=== PATIENT | male | born 1950 | race Caucasian/White ===

== ENCOUNTER 2017-04-19 05:18 | Day surgery (SDC) | payer OTHER ==
[~2017-04-19] VITALS: Ht 177.8 cm; Wt 102.1 kg
--- NOTE | ~2017-04-19 | O ---
[facility] [place] [address] OPERATIVE REPORT Name: JAYNE CHURCHILL Room #: DEP [facility] M.R.#: [id number] Admission: 04/19/17 Attend Phys: Ruba العلي, Discharge: 04/19/17 Date of : 46 Report #: [id number] THIS REPORT FOR: //name// CC: Pablo العلي DATE OF SERVICE: 04/19/2017 PREOPERATIVE DIAGNOSIS: Right thumb osteomyelitis. POSTOPERATIVE DIAGNOSIS: Right thumb osteomyelitis. PROCEDURE PERFORMED: Right thumb proximal phalanx debridement. SURGEON: Ruba العلي MD ANESTHESIA: General mask anesthesia. ESTIMATED BLOOD LOSS: 3 mL TOURNIQUET TIME: 19 minutes. SPECIMENS: Sent to pathology, microbiology and swab was sent to microbiology. COMPLICATIONS: None. CONDITION: Stable. DISPOSITION: To recovery room. INDICATIONS: The patient is a 66-year-old male with the above mentioned diagnosis. He elects for operative treatment. The risks, benefits, alternatives and complications were discussed that included, but were not limited to infection, damage to blood vessels and nerves, incomplete relief of his symptoms, possible needing more surgery and stiffness. An informed consent was obtained. The correct extremity was identified and labeled by myself after verbal confirmation of the patient as well as visual confirmation and signed informed consent was obtained. DESCRIPTION OF PROCEDURE: The patient was brought back to the operating room and placed on the operating table in supine position. He did not receive preoperative antibiotics and 1 g of vancomycin was given in the operating room after the cultures were obtained and tourniquet was deflated. A discussion was held with his infectious disease doctor, Dr. Mauricio Thomson who recommended a PICC line and IV antibiotic of vancomycin initially and he will manage the antibiotics. [address] [address] OPERATIVE REPORT Name: JAYNE CHURCHILL JUDY Room #: DEP [facility]..#: [id number] Admission: 04/19/17 Attend Phys: Ruba العلي, Discharge: 04/19/17 Date of : 46 Report #: [id number] The right upper extremity was sterilely prepped and draped in the usual fashion. A final timeout was taken to verify the correct patient, operative procedure and operative site, all concurred. Tourniquet was placed over careful padding. The arm was elevated, but was not exsanguinated and the tourniquet inflated. Next, an ulnar-sided incision was made at the P1 level distally. Dissection was carried down through the subcutaneous tissue with tenotomy scissors. Cloudy fluid was obtained. No gross purulence was found. The fascia site was easily identified. The bone actually had good quality. Fluoroscopy was brought in to confirm the identity of the fracture site. Next, a small incision was made radially at the insertion site of the K-wire. Dissection was carried down through the subcutaneous tissue with tenotomy scissors. A small micro-curette was inserted into the bone what was felt to be an original insertion site of the K-wire to debride this. Cultures were taken. Next, the wound and bone were irrigated with a liter of antibiotic saline using 14-gauge angiocatheter. This was thoroughly irrigated. The deep Afsaneh drain was placed. The skin was closed with 4-0 nylon suture. Subcutaneous tissue was infiltrated with approximately 3 mL of 0.25% Marcaine. He was placed in a bulky compressive dressing and a thumb spica splint. He tolerated the procedure well. All fingers were pink with brisk capillary refill at the conclusion of the case. After deflation of the tourniquet, all sponge and needle counts were correct. The patient was transferred to the postoperative recovery room in stable condition. <ELECTRONICALLY SIGNED> By: Ruba العلي MD 05/03/17 1111 1730 1816 Ruba العلي MD /nt
--- NOTE | ~2017-04-19 | S ---
[facility] [place] [address] SURGICAL PATH RPT PROCEDURE Name: ROLAND CHURCHILL Room #: DEP [facility] M.R.#: [id number] Admission: 04/19/17 Date of : 46 Discharge: 04/19/17 Report #: [id number] Path Case #: [id number] PATHOLOGY REPORT COLLECTION DATE: 04/19/2017 RECEIVED DATE: 04/20/2017 SUBMITTING PHYS: Dr. Ruba العلي OTHER PHYS: Dr. Pablo Bhakta SPECIMEN(S) RECEIVED: A.Right thumb-distal phalanx bone * * * * * * * * * * * * FINAL DIAGNOSIS: Bone "right thumb distal phalanx bone": - Fragmentation of bony trabeculae with fibrosis consistent with fracture. (SHA:mml; 04/23/2017) PATHOLOGIST: Jack Nicholson M.D. REPORT ELECTRONICALLY SIGNED BY: Jack Nicholson M.D. DATE/TIME: 04/23/2017 14:23 * * * * * * * * * * * * GROSS PATHOLOGY: Received in formalin labeled "Roland Churchill, bone distal phalanx" and consists of a 0.3 x 0.2 x 0.2 cm osseous brown tissue fragment that is totally submitted as A1 following formalin fixation and decalcification. (JEFF; 04/20/2017) CLINICAL HISTORY: Right thumb proximal phalanx fracture INITIAL CPT CODE(S): A; 03327, 03806 Professional services performed by [facility] at [facility] [address] [place] [address] Technical services performed by [facility] at [address] [place] [address], [facility] [address] [address]. [facility] [address] [place] [address] SURGICAL PATH RPT PROCEDURE Name: ROLAND CHURCHILL AXTELL Room #: DEP [facility] Jose#: [id number] Admission: 04/19/17 Date of : 46 Discharge: 04/19/17 Report #: [id number] Path Case #: [id number] [facility] [address] [place] [id number] PHONE: [phone] DIRECTOR: James Hess M.D. * * * END OF REPORT * * *
--- NOTE | ~2017-04-19 | EKG ---
[address] [address] ELECTROCARDIOGRAM REPORT Name: JAYNE CHURCHILL Room #: [facility].#: [id number] Admission: 04/19/17 Attend Phys: Ruba العلي, Discharge: 04/19/17 Date of : 46 Report #: [id number] THIS REPORT FOR: //name// [facility] Test Date: 2017-04-19 Test Time: 13:48:05 Pat Name: JAYNE CHURCHILL Department: Room: 150 4 Gender: M Advertisement Distributor: Jonnie DODSON : 1950 Requested By: Ruba العلي Order Number: [id number] MD: Quirino Issa Measurements Intervals [place] Rate: 67 P: 33 WA: 166 QRS: -47 QRSD: 108 T: -1 QT: 412 QTc: 435 Interpretive Statements Sinus rhythm Left anterior fascicular block Abnormal R-wave progression, late transition Probable left ventricular hypertrophy Compared to ECG 02/14/2016 06:53:51 T-wave abnormality no longer present Electronically Signed On 04-19-2017 21:19:17 SNUFF GRINDER by Quirino Issa [email or web address] <ELECTRONICALLY SIGNED> By: Quirino Issa MD 04/19/17 2119 1348 Quirino Issa MD /EPI
[~2017-04-19 05:18] MED LIST: ASPIRIN325 PO; ATENOLOL; ATENOLOL 100MG100 MG PO; ATENOLOL 25MG T25 MG PO; COREG6.25 MG PO; CRESTOR10 MG PO; DOXYCYCLINE HY100 M3 PO; FOLIC ACID1 MG PO; LISINOPRIL; LISINOPRIL20 MG PO; METHOTREXATE 22.5 MG PO; NITROGLYCERIN0.4 MG SUBLING; NORVASC5 MG PO; PLAVIX 75 MG TA75 M1 PO; PLAVIX PO; VITAMIN D1000 UNI1 PO; ZANTAC 150MG T150 MG PO; ZETIA10 MG PO
[2017-04-19 13:54] LABS: ABSOLUTE NEUTROPHILS 6.1 thou/uL (1.4-8.2); BASOPHILS 0.9 % (0.0-2.0); EOSINOPHILS 2.1 % (0.0-3.0); HEMATOCRIT 45.1 % (42.0-52.0); HEMOGLOBIN 15.1 gm/dL (14.0-18.0); LYMPHOCYTES 20.9 % (24.0-44.0); MCH 28.1 pg (26.0-34.0); MCHC 33.5 g/dL (28.0-37.0); MCV 83.7 fL (80.0-100.0); MONOCYTES 7.1 % (1.0-8.0); PLATELET COUNT 203 thou/uL (150-400); RBC 5.38 mil/uL (4.50-6.00); RDW 14.7 % (10.5-14.5); WBC 8.9 thou/uL (4.0-11.0)
[2017-04-19 14:01] LABS: CREATININE 0.8 mg/dL (0.7-1.3); POTASSIUM 3.7 mmol/L (3.5-5.1)
[2017-04-19 14:07] LABS: ALBUMIN 3.8 g/dL (3.4-5.0); TOTAL BILIRUBIN 0.6 mg/dL (<0.1-1.0); TOTAL PROTEIN 7.2 g/dL (6.4-8.2)
[2017-04-20] MEDS ORDERED: ASPIRIN325 PO (14:58)
== END 2017-04-19 19:20 | disposition home or self-care (01) ==
LOC: OR 05:18 → TBA 05:18 → OR 09:48 → EDSTATUS 11:21 → OR 11:23
PROVIDERS: Orthopaedic Surgery Hand Surgery
DX: M86.641 Other chronic osteomyelitis, right hand (principal); S62.511A Displaced fracture of proximal phalanx of right thumb, initial encounter for closed fracture; X58.XXXA Exposure to other specified factors, initial encounter; Y93.9 Activity, unspecified; Y92.89 Other specified places as the place of occurrence of the external cause; Y99.9 Unspecified external cause status; M86.671 Other chronic osteomyelitis, right ankle and foot; Z87.891 Personal history of nicotine dependence; I10 Essential (primary) hypertension; E78.5 Hyperlipidemia, unspecified; Z95.1 Presence of aortocoronary bypass graft; K21.9 Gastro-esophageal reflux disease without esophagitis; M06.871 Other specified rheumatoid arthritis, right ankle and foot
CPT/HCPCS: 27000; 50010; 50101; 50386; 57006; 57091; 62110; 62900; 70005

== ENCOUNTER → 2017-04-20 | Outpatient (CLI) | payer OTHER ==
[2017-04-20 14:49] VITALS: BP 146/84
== END ==
LOC: OPONC 10:17
DX: M86.8X4 Other osteomyelitis, hand (principal)
CPT/HCPCS: 95000

== ENCOUNTER → 2017-04-21 | Outpatient (CLI) | payer OTHER | LOC: OPONC 01:41 | DX: M86.8X4 Other osteomyelitis, hand (principal) | CPT/HCPCS: 95000 ==

== ENCOUNTER → 2017-04-22 | Outpatient (CLI) | payer OTHER | LOC: OPONC 04:25 | DX: M86.8X4 Other osteomyelitis, hand (principal) | CPT/HCPCS: 95000 ==

== ENCOUNTER → 2017-04-23 | Outpatient (CLI) | payer OTHER ==
[2017-04-23 10:30] VITALS: BP 163/102
== END ==
LOC: OPONC 01:41
DX: M86.8X4 Other osteomyelitis, hand (principal); Z88.0 Allergy status to penicillin
CPT/HCPCS: 27001; 95000

== ENCOUNTER → 2017-04-24 | Outpatient (CLI) | payer OTHER ==
[2017-04-24 10:55] VITALS: BP 168/102
== END ==
LOC: OPONC 06:24
DX: M86.8X4 Other osteomyelitis, hand (principal)
CPT/HCPCS: 95000

== ENCOUNTER → 2017-04-25 | Outpatient (CLI) | payer OTHER ==
[2017-04-25 10:00] LABS: HEMATOCRIT 42.4 % (42.0-52.0); HEMOGLOBIN 14.1 gm/dL (14.0-18.0); MCH 28.3 pg (26.0-34.0); MCHC 33.3 g/dL (28.0-37.0); MCV 84.9 fL (80.0-100.0); RDW 14.5 % (10.5-14.5); WBC 7.2 thou/uL (4.0-11.0)
[2017-04-25 10:10] VITALS: BP 147/83
[2017-04-25 10:25] LABS: ALBUMIN 3.3 g/dL (3.4-5.0); CALCIUM 8.9 mg/dL (8.5-10.1); CREATININE 0.9 mg/dL (0.7-1.3); POTASSIUM 3.6 mmol/L (3.5-5.1); TOTAL BILIRUBIN 0.5 mg/dL (<0.1-1.0); TOTAL PROTEIN 6.7 g/dL (6.4-8.2)
== END ==
LOC: OPONC 00:18
PROVIDERS: Specialist
DX: M86.8X4 Other osteomyelitis, hand (principal)
CPT/HCPCS: 95000

== ENCOUNTER → 2017-04-26 | Outpatient (CLI) | payer OTHER ==
[2017-04-26 09:21] VITALS: BP 158/87
== END ==
LOC: OPONC 00:18
DX: M86.8X4 Other osteomyelitis, hand (principal)
CPT/HCPCS: 95000

== ENCOUNTER → 2017-04-27 | Outpatient (CLI) | payer OTHER ==
[2017-04-27 09:08] VITALS: BP 169/91
== END ==
LOC: OPONC 00:18
DX: M86.8X4 Other osteomyelitis, hand (principal)
CPT/HCPCS: 95000

== ENCOUNTER → 2017-04-28 | Outpatient (CLI) | payer OTHER | LOC: OPONC 00:18 | DX: M86.8X4 Other osteomyelitis, hand (principal) | CPT/HCPCS: 95000 ==

== ENCOUNTER → 2017-04-29 | Outpatient (CLI) | payer OTHER | LOC: OPONC 00:18 | DX: M86.8X4 Other osteomyelitis, hand (principal) | CPT/HCPCS: 95000 ==

== ENCOUNTER → 2017-04-30 | Outpatient (CLI) | payer OTHER | LOC: OPONC 00:18 | DX: M86.8X4 Other osteomyelitis, hand (principal) | CPT/HCPCS: 95000 ==

== ENCOUNTER → 2017-05-01 | Outpatient (CLI) | payer OTHER ==
[2017-05-01 09:25] VITALS: BP 145/89
[2017-05-01 09:33] LABS: HEMATOCRIT 41.9 % (42.0-52.0); HEMOGLOBIN 14.2 gm/dL (14.0-18.0); MCH 28.4 pg (26.0-34.0); MCHC 33.9 g/dL (28.0-37.0); MCV 83.9 fL (80.0-100.0); RBC 4.99 mil/uL (4.50-6.00); RDW 14.2 % (10.5-14.5); WBC 7.5 thou/uL (4.0-11.0)
[2017-05-01 09:46] LABS: ALBUMIN 3.3 g/dL (3.4-5.0); CALCIUM 8.4 mg/dL (8.5-10.1); CREATININE 0.9 mg/dL (0.7-1.3); POTASSIUM 3.6 mmol/L (3.5-5.1); TOTAL BILIRUBIN 0.4 mg/dL (<0.1-1.0); TOTAL PROTEIN 6.7 g/dL (6.4-8.2)
== END ==
LOC: OPONC 00:18
PROVIDERS: Specialist
DX: M86.8X4 Other osteomyelitis, hand (principal)
CPT/HCPCS: 95000

== ENCOUNTER → 2017-05-02 | Outpatient (CLI) | payer OTHER ==
[2017-05-02 11:40] VITALS: BP 167/83
== END ==
LOC: OPONC 00:52
DX: M86.8X4 Other osteomyelitis, hand (principal)
CPT/HCPCS: 95000; 95001

== ENCOUNTER → 2017-05-03 | Outpatient (CLI) | payer OTHER ==
[2017-05-03 14:55] VITALS: BP 140/80
== END ==
LOC: OPONC 06:53
DX: M86.8X4 Other osteomyelitis, hand (principal)
CPT/HCPCS: 95000

== ENCOUNTER 2020-04-10 00:09 | Emergency (ER) | payer OTHER ==
[~2020-04-10] VITALS: Ht 177.8 cm; Wt 106.6 kg
[2020-04-10] MEDS ORDERED: LOW DOSE ASPIRI81 M1 PO (00:15)
[2020-04-10] MEDS ORDERED: NORVASC5 MG PO (00:16)
[2020-04-10] MEDS ORDERED: FAMOTIDINE20 MG PO (00:17)
[2020-04-10] MEDS ORDERED: FUROSEMIDE 20 M20 M1 PO (00:17)
[2020-04-10] MEDS ORDERED: FOLIC ACID0.4 MG PO (00:17)
[2020-04-10] MEDS ORDERED: ATENOLOL 50MG T50 MG PO (00:17)
[2020-04-10] MEDS ORDERED: K-DUR10 MEQ PO (00:18)
[2020-04-10] MEDS ORDERED: EFFIENT10 MG PO (00:18)
[2020-04-10] MEDS ORDERED: ROSUVASTATIN CA20 MG PO (00:18)
[2020-04-10] MEDS ORDERED: TREXALL10 MG PO (00:19)
[2020-04-10] MEDS ORDERED: ATENOLOL 50MG T50 M1 PO (00:20)
[2020-04-10 00:38] LABS: ABSOLUTE NEUTROPHILS 5.1 thou/uL (1.4-8.2); BASOPHILS 0.7 % (0.0-2.0); EOSINOPHILS 3.6 % (0.0-3.0); HEMATOCRIT 42.2 % (42.0-52.0); HEMOGLOBIN 13.9 gm/dL (14.0-18.0); MCH 28.3 pg (26.0-34.0); MCHC 32.9 g/dL (28.0-37.0); MONOCYTES 9.3 % (1.0-8.0); PLATELET COUNT 217 thou/uL (150-400); POLYS 65.4 % (36.0-66.0); RBC 4.91 mil/uL (4.50-6.00); RDW 16.1 % (10.5-14.5); WBC 7.8 thou/uL (4.0-11.0)
[2020-04-10 00:44] LABS: CALCIUM 9.1 mg/dL (8.5-10.1); CREATININE 0.9 mg/dL (0.7-1.3); POTASSIUM 3.4 mmol/L (3.5-5.1)
[2020-04-10 00:53] LABS: TROPONIN-I 0.21 ng/mL (<0.06)
[2020-04-10 05:03] VITALS: BP 165/91
--- NOTE | 2020-04-10 10:45 | EKG ---
[facility] [place] [address] ELECTROCARDIOGRAM REPORT Name: JAYNE CHURCHILL [id number] Admission: 04/10/20 Attend Phys: Discharge: 04/10/20 Date of : 46 Report #: [id number] THIS REPORT FOR: cc: Pablo Bhakta MD, Richard C. MD Lundgren, Craig H. MD [facility] ~ THIS REPORT FOR: //name// [facility] ED Test Date: 2020-04-10 Test Time: 00:15:54 Pat Name: JAYNE CHURCHILL Department: Room: Gender: Diesel Mechanic Apprentice: : 1950 Requested By: Willy Xiong Order Number: [id number] MD: Joshua Mims Measurements Intervals [place] Rate: 87 P: 49 ID: [id number] QRS: -79 QRSD: 126 T: 12 QT: 403 QTc: 485 Interpretive Statements Sinus rhythm Ventricular premature complex Nonspecific IVCD with LAD Anteroseptal infarct, age indeterminate Baseline wander in lead(s) V1 Compared to ECG 04/19/2017 13:48:05 Ventricular premature complex(es) now present Electronically Signed On 04-10-2020 10:45:13 PRENATAL GENETIC COUNSELOR by Joshua Mims [email or web address] <ELECTRONICALLY SIGNED> By: Joshua Mims MD, [facility] 04/10/20 1045 0015 0015 Joshua Mims MD, [facility] /EPI
== END 2020-04-10 05:06 | disposition home or self-care (01) ==
LOC: ER 00:09
PROVIDERS: Emergency Medicine
DX: I49.3 Ventricular premature depolarization (principal); R00.2 Palpitations; R11.0 Nausea; R68.83 Chills (without fever); Z95.5 Presence of coronary angioplasty implant and graft; I10 Essential (primary) hypertension; I48.91 Unspecified atrial fibrillation; M06.9 Rheumatoid arthritis, unspecified; K21.9 Gastro-esophageal reflux disease without esophagitis; E78.5 Hyperlipidemia, unspecified; E66.9 Obesity, unspecified; Z79.899 Other long term (current) drug therapy; Z98.890 Other specified postprocedural states; Z79.82 Long term (current) use of aspirin; Z88.0 Allergy status to penicillin; Z88.1 Allergy status to other antibiotic agents; Z87.891 Personal history of nicotine dependence; Z68.33 Body mass index [BMI] 33.0-33.9, adult